=== PATIENT | male | born 1960 ===

== ENCOUNTER 2020-09-26 06:15 | Day surgery (SDC) | payer OTHER | END 2020-09-26 10:00 | disposition home or self-care (01) | LOC: AMB-ENDOS 06:15 | PROVIDERS: ATTEND Colon & Rectal Surgery | DX: K62.1 Rectal polyp (principal); K64.0 First degree hemorrhoids; Z20.828 Contact with and (suspected) exposure to other viral communicable diseases; Z12.11 Encounter for screening for malignant neoplasm of colon ==